=== PATIENT | female | born 1985 | race Caucasian/White ===

== ENCOUNTER 2017-03-04 19:47 | Inpatient (IN) | payer OTHER ==
[~2017-03-04 19:47] MED LIST: IBUPROFEN200 MG PO; NO HOME MEDS; PRENATAL1 EACH PO
[2017-03-04] MEDS ORDERED: PRENA1 CHEW TA1.4 M1 PO (22:44)
[2017-03-06] MEDS ORDERED: IBUPROFEN800 M1 PO (11:26)
[2017-03-06] MEDS ORDERED: COLACE100 M1 PO (11:26)
== END 2017-03-06 17:45 | DRG 775 ==
LOC: LDR 19:47 → OBGD 03-05 07:00
PROVIDERS: ADMIT Advanced Practice Midwife
PROC: 3E0P7GC Introduction of Other Therapeutic Substance into Female Reproductive, Via Natural or Artificial Opening (ICD-10-PCS; 2017-03-04)
PROC: 0KQM0ZZ Repair Perineum Muscle, Open Approach (ICD-10-PCS; principal; 2017-03-05)
PROC: 0W8NXZZ Division of Female Perineum, External Approach (ICD-10-PCS; principal; 2017-03-05)
PROC: 10E0XZZ Delivery of Products of Conception, External Approach (ICD-10-PCS; principal; 2017-03-05)
DX: O24.420 Gestational diabetes mellitus in childbirth, diet controlled (principal); O70.1 Second degree perineal laceration during delivery; Z3A.40 40 weeks gestation of pregnancy; Z37.0 Single live birth
CPT/HCPCS: J2590